=== PATIENT | male | born 1990 | race Caucasian/White ===

== ENCOUNTER 2017-07-29 13:08 | Emergency (ER) | payer SELFPAY ==
[~2017-07-29] VITALS: Ht 170.2 cm; Wt 62.0 kg
[2017-07-29 13:21] VITALS: BP 133/73; PULSE 60; RESP 17; TEMP 98.7; O2SAT 98
[2017-07-29] MEDS ORDERED: CLINDAMYCIN 150 MG CAP PO ONE (13:45)
[2017-07-29] MEDS ORDERED: IBUPROFEN 600 MG TAB PO ONE (13:45)
[2017-07-29] MEDS ORDERED: IBUP-232 PO (13:46)
[2017-07-29] MEDS ORDERED: CLIN150C14 PO (13:46)
[2017-07-29] MEDS ORDERED: PERI0.126 SWISH-SPIT (13:46)
--- NOTE | 2017-07-29 13:47 | PD ---
HPI Chief Complaint: Oral / Dental Pain or Problem Time Seen by Provider: 13:37 Travel History International Travel<30 days: No Contact w/Intl Traveler<30days: No Traveled to known affect area: No History of Present Illness HPI 27-year-old male presents to the emergency department for evaluation of dental pain that started approximately 2 weeks ago. He reports subjective fevers, but has not checked his temperature. Patient states his tooth broke approximately 2 weeks ago. He has not yet followed up with a dentist. Patient reports allergy to penicillin. Current pain is 8/10, without radiation. No exacerbating or alleviating factors. He has no chronic medical problems and takes no prescribed medications. Mild severity. PFSH Past Medical History Cancer: No Diabetes: No Diminished Hearing: No Psychiatric: Yes Immunizations Current: Yes Seizures: No Thyroid Disease: No Ulcer: No Tetanus Vaccination: Unknown Influenza Vaccination: No ?: Not Social History Alcohol Use: Yes (hard liquer ) Tobacco Use: Yes (1 ppd) Substance Use: Yes (Marijuana) Allergies-Medications (Allergen,Severity, Reaction): Coded Allergies: Penicillins (Verified Allergy, Severe, Anaphylaxis, 07/29/17) Reported Meds & Prescriptions Reported Meds & Active Scripts Active Review of Systems Except as stated in HPI: all other systems reviewed are Neg Physical Exam Narrative GENERAL: Well-nourished, well-developed male patient, ambulatory. Afebrile. SKIN: Focused skin assessment warm/dry. HEAD: Normocephalic. Atraumatic. No facial swelling. ENT: Mucosa pink and moist. No erythema or exudates. No uvular edema. No uvular , palatal, or tonsillar deviation. Airway patent. Nasal turbinates appear normal without nasal blood, purulent drainage or septal hematoma. Bilateral tympanic membranes clear without erythema or perforation. Tooth #14 is broken. No obvious dental fluctuance or abscess. EYES: No scleral icterus. No injection or drainage. NECK: Supple, trachea midline. No JVD or lymphadenopathy. CARDIOVASCULAR: Regular rate and rhythm without murmurs, gallops, or rubs. RESPIRATORY: Breath sounds equal bilaterally. No accessory muscle use. Lung sounds are clear to auscultation. MUSCULOSKELETAL: No cyanosis, or edema. Data Data Last Documented VS Vital Signs Date Time Temp Pulse Resp B/P (MAP) Pulse Ox O2 Delivery O2 Flow Rate FiO2 07/29/17 13:21 98.7 60 17 133/73 (93) 98 Orders Orders Ibuprofen (Motrin) (07/29/17 13:45) Clindamycin (Cleocin) (07/29/17 13:45) MDM Medical Decision Making Medical Screen Exam Complete: Yes Emergency Medical Condition: Yes Medical Record Reviewed: Yes Differential Diagnosis Dental abscess versus caries versus gingivitis Narrative Course 27-year-old male presents to the emergency department for evaluation of dental pain and possible abscess. Tooth #14 is broken on exam. Patient is instructed on need to follow-up with a dentist. He will be discharged prescription for ibuprofen, clindamycin, Peridex oral solution. Patient verbalizes agreement. The patient was discharged in stable condition with instructions, including return instructions and follow up instructions. Diagnosis Primary Impression: Dentalgia Referrals: Dentist call for appointment Patient Instructions: General Instructions, Toothache (ED) Additional Instructions: Take antibiotic as directed until gone. Use Peridex oral solution. Take ibuprofen as directed as needed with food for pain. Follow up with a dentist. Return to the emergency department for any acute worsening of symptoms. Med/Other Pt SpecificInfo: Prescription(s) given Scripts Ibuprofen (Ibuprofen) 600 Mg Tab 600 MG PO TID Y for PAIN SCALE 1 TO 10, #21 TAB 0 Refills Prov: Lilly Segal 07/29/17 Chlorhexidine Gluconate (Mouth) Liq (Peridex Liq) 0.12% Soln 15 ML SWISH-SPIT BID, #473 ML 0 Refills Prov: Lilly Segal 07/29/17 Clindamycin (Clindamycin) 150 Mg Cap 300 MG PO Q6H for Infection for 10 Days, #80 CAP 0 Refills Prov: Lilly Segal 07/29/17 Disposition: 01 DISCHARGE HOME Condition: Stable Lilly Segal Jul 29, 2017 13:47
== END 2017-07-29 14:07 | disposition home or self-care (01) ==
LOC: PHEFT 13:08
DX: K08.89 Other specified disorders of teeth and supporting structures (principal); F17.210 Nicotine dependence, cigarettes, uncomplicated; Z88.0 Allergy status to penicillin
CPT/HCPCS: 99283